=== PATIENT | female | born 1940 | race Caucasian/White ===

== ENCOUNTER 2016-10-20 12:18 | Inpatient (IN) | payer OTHER ==
--- NOTE | ~2016-10-20 | CO ---
Unit #: [id number] #: [id number] Patient: RHONDA RAMIREZ [id number] [address] [place], [place] [address] [id number] I MR#: [id number] NAME: RHONDA RAMIREZ ROOM: 561 Age: 76 Sex: F Admission Date: 10/20/2016 : 1940 Attending Physician: Steffanie Dias M.D. Primary Care Physician: Mariann Lerner A.P.R.N. Consultation Date: 10/21/2016 CONSULTATION REPORT REASON FOR CONSULTATION Ms. Ramirez is a 76-year-old white female who was admitted through the emergency department with complaints of apparent increased shortness of breath on exertion and congestive heart failure. Currently, the patient is a very unreliable historian. Prior to my seeing her this morning, she had received Serax 15 mg on a scheduled basis. She is extremely drowsy. She only awakens with shaking her; she does make eye contact, but is not able to complete her answers to questions. Also, she answers unreliable as to how much she actually remembers. According to the emergency room records, the patient had been having increasing shortness of breath. She was seen in the emergency room and felt to have congestive heart failure. She does have a history of hypertension, type 2 diabetes mellitus, and morbid obesity. On my questioning her, she absolutely denies having any history of myocardial infarction, cardiac catheterization in the past, angioplasties or stent deployments. In the emergency room she was noted to have an initial elevated troponin of 0.4 and has been admitted for further evaluation and treatment. When I tried to keep the patient awake to answer questions, she on two separate occasions denied having had any recent chest, neck, arm, jaw, or intrascapular discomfort suggestive of angina pectoris. Other history from this patient is unreliable. PAST MEDICAL HISTORY 1. Review of old records indicate she was admitted in 2013 for a surgical procedure. History and physical at that time noted that she had a diagnosis of "congestive heart failure" and medications included losartan and metoprolol as well as some diuretics. 2. Hypothyroidism. 3. Diverticulitis. 4. Hypertension. 5. Seasonal allergies. PAST SURGICAL HISTORY 1. Status post hysterectomy. 2. Tonsillectomy. 3. Adenoidectomy. 4. Bilateral knee replacements. Unit #: [id number] #: [id number] Patient: RHONDA RAMIREZ 5. Left ankle surgery. SOCIAL HISTORY No tobacco use or alcohol use. ALLERGIES Penicillin, codeine, sulfa dioxide. CURRENT MEDICATIONS 1. Losartan/HCTZ 50/12.5 mg p.o. daily. 2. Metoprolol succinate. 3. Glipizide. 4. Metformin. 5. Pravastatin. 6. Tramadol. 7. Neurontin. 8. Bentyl. 9. Amitriptyline. REVIEW OF SYSTEMS Currently unobtainable due to over sedation with Serax. PHYSICAL EXAMINATION GENERAL: The patient is a very drowsy, but arousable, 76-year-old white female who is supine in bed and in no acute distress. She is arousable by calling her name multiple times, but is unable to carry on any meaningful conversation. VITALS: Oxygen saturation 94% on nasal cannula. Blood pressure 107/52, blood sugar at bedtime 102, respiratory rate 16 per minute and unlabored. In the emergency department 10/20/2016 at 12:18 p.m., blood pressure 194/94, pulse rate 111 (sinus), temperature 97.7 and oxygen saturation on room air 86%. HEENT: Skin is warm and dry. She is not icteric. Thyroid is not palpable. There is no lymphadenopathy. Oral mucosa is moist. NECK: Supple. CHEST: Decreased breath sounds at the bases laterally. No paris rales. No wheezing. HEART: Regular rate and rhythm. S1 is normal. The pulmonic component of the second heart sound is not increased. There is a 2/6 systolic murmur at the left lower sternal border without pathologic radiation. There is no diastolic murmur or S3. Carotid upstrokes are brisk bilaterally without bruit. ABDOMEN: Morbidly obese. Soft on palpation with no guarding or rebound. Difficult to accurately assess for hepatosplenomegaly due to her morbid obesity. EXTREMITIES: Trace bilateral edema. No cyanosis. Pedal pulses palpable. NEUROLOGIC: The patient is able to move all four extremities on exam. She has normal flexor and extensor strength. She does not have any asymmetry of her face. No evidence of acute neurological event. DIAGNOSTIC STUDIES LABORATORY: Serum troponin 0.42 and 0.39 with normal total CK. Serum potassium has improved from 3.0 yesterday to 3.6 today. Serum creatinine at 0.7. CARDIOVASCULAR: EKG 10/20/2016: Sinus tachycardia at 101 per minute. Low voltage QRS all leads. Poor R wave progression V1 through V4. Could not exclude anterior infarct, age undetermined. No acute injury pattern Unit #: [id number] #: [id number] Patient: RHONDA RAMIREZ or ischemia. EKG 10/21/2016 at 7:57 a.m., normal sinus rhythm at 75 per minute. Low voltage QRS. Poor R wave progression V1 through V4. Cannot exclude anterior infarct, age undetermined. ASSESSMENT 1. Acute hypoxemic respiratory failure. As noted, this was present on admission to the emergency room and has improved post diuresis. Most likely related to acute congestive heart failure. 2. History of congestive heart failure. I am not able to find any echocardiogram and the patient is unable to give any coherent history. Echocardiogram has been done and will determine whether she has systolic/(1) or diastolic congestive heart failure. 3. Accelerated hypertension. Significant elevated blood pressure on admission to the emergency room. Now post giving medications blood pressure is much better controlled. 4. Type 2 diabetes mellitus. 5. Morbid obesity. 6. Hyperlipidemia, treated with statin therapy. PLAN In view of the elevated troponin, we will change the patient from DVD prophylaxis Lovenox to full-dose Lovenox. We will continue to check serial cardiac enzymes and tomorrow morning make the determination as to whether she needs to proceed with coronary angiography with possible revascularization. We will need to wait until she is more alert in order to discuss risks, benefits and alternatives of catheterization, possible intervention. We will change her Serax from scheduled to p.r.n. and only at night if she is not drowsy. Final recommendation as to proceeding with possible invasive evaluation will be made in the morning, when Effexor, benzodiazepines have worn off and the patient can engage in discussion. No family members were present at the time of her evaluation. Dictated by... Truman Camarillo TD: 10/21/2016 12:15 JOB #: [id number] CC: Truman Christopher M.D. [facility] Unit #: [id number] #: [id number] Patient: RHONDA RAMIREZ CONSULTATION REPORT Page 1 of 1 X Ian Carvalho MD CONSULTATION REPORT
--- NOTE | ~2016-10-20 | CT16 ---
[facility] A Service of [facility] & [facility] RADIOLOGY TEXT RESULTS PATIENT: RHONDA RAMIREZ LOCATION: [facility] 561-01 : 40 UNIT #: [id number] AGE: [address]: Abel Chan MD SEX: F ORDER DR: [id number] [facility] [address] [place], [place] [address] [id number] I MR#: [id number] Acc #: [id number] NAME: RHONDA RAMIREZ : 1940 SEX: F STUDY DATE/TIME: 10/24/2016 17:56 UNIT: [facility] ROOM: [facility] STUDY DESCRIPTION: CT Angio Chest for PE Attending Physician: Abel Chan M.D. Ordering Physician: Yue Caceres M.D. Primary Care Physician: Mariann Lerner A.P.R.N. MEDICAL IMAGING REPORT This report is preliminary unless electronic signature is present EXAM CT of the chest with IV contrast, CT angiography of the pulmonary arteries HISTORY Shortness of breath on exertion for 4 days, right upper back pain, new onset confusion. TECHNIQUE Axial imaging of the chest was performed with an IV bolus of contrast. CT angiography was performed through the pulmonary arteries and aorta with 3-D MIP multiplanar reconstructions. This CT exam was performed with one or more of the following radiation dose reduction techniques: Automatic exposure control, adjustment of mA and/or kV according to patient size, and iterative reconstruction. FINDINGS Scans with contrast show bilateral dependent pleural effusions, right greater than left. There is atelectasis in the bases, right greater than left. Extensive calcifications are present in the mitral valve annulus and there are calcifications in the coronary arteries. Granulomatous calcifications are present in the right hilum and subcarinal region. Small shotty nodes are seen in the mediastinum, none of which are pathologically enlarged. The largest node in the AP window has a short-axis diameter of about 6 mm. Scans through the upper abdomen appear unremarkable. CT angiography of the pulmonary arteries was performed. There is mild enlargement of the central pulmonary arteries. The aorta is of normal caliber with atherosclerotic calcification; there is no evidence of aneurysm or dissection. There is no pericardial fluid identified. No pulmonary artery filling defects are identified. [facility] A Service of [facility] & [facility] RADIOLOGY TEXT RESULTS PATIENT: RHONDA RAMIREZ LOCATION: [facility] 561-01 : 40 UNIT #: [id number] AGE: [address]: Abel Chan MD SEX: F ORDER DR: CONCLUSION 1. Low volumes with bibasilar atelectasis and bilateral pleural effusions, right greater than left. 2. Enlargement of the central pulmonary arteries likely reflecting some degree of pulmonary hypertension. 3. No evidence of pulmonary embolism, no evidence of aneurysm or dissection. 4. Small shotty nodes in the mediastinum, likely insignificant. 5. Atherosclerotic calcifications in the aorta and coronary arteries. 6. No evidence of pulmonary embolism. Dictated by... Tim Rodriguez M.D. THIS IS AN ELECTRONICALLY VERIFIED REPORT Tim Rodriguez M.D. at 10/26/2016 4:42 PM ELISHA/carrie TD: 10/24/2016 21:54 JOB #: [id number] MEDICAL IMAGING REPORT Page 1 of 1 COPY
--- NOTE | ~2016-10-20 | DS ---
Unit #: [id number] #: [id number] Patient: RHONDA RAMIREZ [id number] [address] [address] [id number] I MR#: [id number] NAME: RHONDA RAMIREZ ROOM: 561 Age: 76 Sex: F Admission Date: 10/20/2016 : 1940 Discharge Date: 10/26/2016 Attending Physician: Abel Chan M.D. Primary Care Physician: Mariann Lerner A.P.R.N. DISCHARGE SUMMARY PRINCIPAL DISCHARGE DIAGNOSES 1. Single vessel coronary artery disease. 2. Acute diastolic congestive heart failure. 3. Severe pulmonary hypertension. 4. Hypothyroidism. 5. Type 2 diabetes mellitus. 6. Morbid obesity. 7. Hyperlipidemia. CONSULTANTS Dr. Soto. Dr. Carvlaho. PROCEDURES PERFORMED Cardiac catheterization 10/23/2016. REASON FOR HOSPITALIZATION The patient is a 76-year-old white female with a history of hypertension, type 2 diabetes mellitus, hypothyroidism, peripheral neuropathy, morbid obesity, and presented to the emergency room with new onset of shortness of air over the past month or so, slowly worsening, especially with peripheral edema. In the emergency room she was found to have new onset congestive heart failure and admitted. On admission her room air O2 saturation was 86% and her blood pressure was quite elevated. Chest x-ray showed cardiomegaly, mild congestive heart failure, small right pleural effusion. Troponin was normal. White count was 11, hemoglobin 13, platelets 335, potassium 3.0, normal renal function, and BNP was 880. The patient was admitted. HOSPITAL COURSE Repeat cardiac enzymes were obtained. She was admitted to a monitored bed. She was placed on IV Lasix. Cardiology was consulted. She was placed on Coreg and aspirin. Cardiac enzymes became elevated to a peak of 0.42. Her blood sugars were low and her antihyperglycemics were discontinued. Her procalcitonin was 0.06. she became lethargic. ABGs were performed. She had a pH of 7.4, pCO2 66 and a PaO2 of 74. She was seen by Dr. Soto and placed on BiPAP. EKG showed no significant change. Lactic acid was normal at 1.1. Urinalysis was abnormal, but was no growth at 24 and 48 hours. She then was prepped and underwent cardiac catheterization on the , showing a single vessel coronary artery disease. Plan was for maximal medical therapy. Left ventricle was normal. There was severe calcification of the mitral anulus. Adjustments were made to her medications. She was started on Sildenafil after her echo showed severe pulmonary hypertension. She will need to have Unit #: [id number] #: [id number] Patient: RHONDA RAMIREZ outpatient sleep study for probable sleep apnea syndrome. Currently she is well saturated on 2 liters. Her echo otherwise showed normal left ventricular cavity size with moderate concentric LVH and ejection fraction of 65%-70%, grade 1 diastolic dysfunction, trace mitral regurgitation, right ventricular systolic pressure 68 mmHg. Her O2 saturation was okay on room air, but she desaturated to 88% with exertion. She had a CT angiogram on the which showed low lung volumes, atelectasis, multilateral pleural effusions, right greater than left, and large central pulmonary arteries reflecting pulmonary hypertension. No evidence of PE, aneurysm or dissection. She is being discharged home on O2 at 2 liters nasal cannula continuously. Healthy heart diet. FOLLOWUP 1. Follow up in the office in one week. 2. Dr. Londono on Saturday12/24/2016 at 15:15 hours. When she follows up in the office she will need a repeat BMP and magnesium level as well as BNP. Her last one here at the hospital was 385 on 10/25/2016. DISCHARGE MEDICATIONS 1. Sildenafil 20 mg p.o. b.i.d. 2. Atorvastatin 80 mg daily. 3. Coreg 3.125 mg p.o. b.i.d. 4. Lasix 40 mg p.o. b.i.d. 5. K-Dur 40 mEq p.o. daily. 6. Aspirin 81 mg daily. 7. Plavix 75 mg daily. 8. Neurontin 300 mg daily. 9. Discontinue losartan/HCTZ. 10. Stop Metformin. 11. Stop Oxazepam. 12. Stop glipizide. 13. Synthroid 112 mcg daily. Dictated by... Abel Chan M.D. Dayanara TD: 10/29/2016 09:20 JOB #: [id number] DISCHARGE SUMMARY Page 1 of 1 X Abel Chan MD DISCHARGE SUMMARY
--- NOTE | ~2016-10-20 | HP ---
Unit #: [id number] #: [id number] Patient: RHONDA RAMIREZ 197925 [address] [place], [place] [address] [id number] I MR#: [id number] NAME: RHONDA RAMIREZ. ROOM: 561 Age: 76 Sex: F Admission Date: 10/20/2016 : 1940 Attending Physician: Steffanie Dias M.D. Primary Care Physician: Mariann Lerner A.P.R.N. HISTORY AND PHYSICAL CHIEF COMPLAINT Shortness of breath, generalized weakness and lower abdominal pain. HISTORY OF PRESENTING ILLNESS Miss Barraza is a 76-year-old female who has multiple medical problems including hypertension, diabetes mellitus, hypothyroidism, peripheral neuropathy, came with a complaint of shortness of breath. Patient has not been feeling well for almost one month. She can walk only a few steps and starts getting short of breath. It was gradually getting worse. Her legs started to swell up and she started having lower abdominal pain yesterday. She came to ER for further evaluation and has been found to be in congestive heart failure which is new onset. According to patient she has not had any cardiac history in the past. She had cardiac workup done a few years ago at [facility]. It was normal. She does not complain of chest pain. She does not complain of chest tightness. She does not complain of nausea or vomiting. She does use two pillows to sleep but she has been using that for a long period of time. She does not complain of paroxysmal nocturnal dyspnea. She has been having polyuria and dysuria, no hematuria. No history of fever, chills or rigors. PAST MEDICAL HISTORY Past medical history is: 1. Diabetes mellitus type 2. 2. Hypertension. 3. Hypothyroidism. 4. Diabetic neuropathy. PAST SURGICAL HISTORY 1. History of hysterectomy. 2. Tonsillectomy. 3. Bilateral knee replacements. 4. Left ankle surgery. HOME MEDICATIONS Home medications are: 1. Glipizide 10 mg p.o. daily. 2. Levothyroxine 112 mcg daily. 3. Losartan and hydrochlorothiazide 50/12.5 one tablet daily. 4. Metformin 500 mg daily. 5. Gabapentin 300 mg daily. 6. Oxazepam 15 mg daily. SOCIAL HISTORY Patient lives at home. There is no history of smoking, alcohol or drug Unit #: [id number] #: [id number] Patient: RHONDA RAMIREZ. FAMILY HISTORY Patient's father and brother had esophageal malignancy. The patient's mother had coronary artery disease but there was no cardiac surgery. ALLERGIES Penicillin, codeine, sulfur dioxide. REVIEW OF SYMPTOMS As per history of presenting illness. There is no history of fever, chills or rigors. No history of skin problem. No history of ear, nose or throat problem. Her abdominal pain is much improved. No history of syncopal episode. She does complain of dizziness and did fall a few times according to her daughter but she did not have any syncopal episode. No history of seizures. PHYSICAL EXAMINATION GENERAL: Patient is being evaluated in room 561. VITAL SIGNS: Blood pressure is 150/74. Respiratory rate 18. Pulse is 92. Temperature 97.6. Oxygen saturation 95%. On admission the patient's oxygen saturation was 86% on room air and blood pressure was 194/94. The patient's BMI 47. HEENT: Head is normocephalic. Eye movements are normal. Pale conjunctivae. NECK: Neck is supple. No thyromegaly and trachea is in midline. CHEST: Has fair air entry, decreased at the bases. Bibasilar rales are present. CVS: S1, S2 positive, regular rhythm. ABDOMEN: Obese, soft, nontender, no rigidity, no rebound. EXTREMITIES: Pedal edema 1+ is present. [employer]: Patient is awake, alert, oriented x3. No focal neurological deficit. DIAGNOSTIC STUDIES LABORATORY WORKUP: Troponin 0.05, WBC 11.0, hemoglobin 13.1, hematocrit 41.8 and platelet count of 335, sodium 137, potassium 3.0, chloride 92, BUN 9, creatinine 0.7, liver enzymes are stable, BNP 880. IMAGING: Chest x-ray single view was done which shows cardiomegaly with mild central vascular congestion and bilateral interstitial opacities. Early congestive heart failure not excluded. Small right pleural effusion not excluded. ASSESSMENT Patient is being admitted to telemetry unit with diagnoses of: 1. New onset congestive heart failure. 2. Acute hypoxic respiratory failure, possibly secondary to above. 3. Hypertension, not well controlled. 4. Hypokalemia. 5. Diabetes mellitus type 2. 6. Hypothyroidism. 7. Morbid obesity. PLAN Plan is being admitted to telemetry unit under Dr. Chan. Dr. Londono has been consulted. IV Lasix 20 mg q.12 h. is being started. Cardiac enzymes and EKG q.6 h. x2. Aspirin 81 mg p.o. daily. Coreg 6.25 mg p.o. b.i.d. Unit #: [id number] #: [id number] Patient: RHONDA RAMIREZ [place]. Fasting lipid profile. Procalcitonin level will be ordered. Home medications have been reviewed. The patient's metformin is being discontinued and we are going to start Accu-Chek a.c. and h.s. with insulin sliding scale. The rest of the medications are being continued. Lovenox 40 mg subcu daily is being started. Healthy heart CC diet is being started. Plan of care has been discussed with patient and the patient's family who is in the room. Please refer to progress note for further orders. Dictated by Truman Christopher/braden TD: 10/20/2016 18:47 JOB #: [id number] HISTORY AND PHYSICAL Page 1 of 1 X Steffanie Dias MD X HISTORY AND PHYSICAL
--- NOTE | ~2016-10-20 | CR72 ---
[facility] A Service of [facility] RADIOLOGY TEXT RESULTS PATIENT: RHONDA RAMIREZ LOCATION: [facility] [address] : 40 UNIT #: [id number] AGE: [address]: Steffanie Dias MD SEX: F ORDER DR: [id number] [facility] [address] [place], [place] [address] [id number] I MR#: [id number] Acc #: [id number] NAME: RHONDA RAMIREZ. : 1940 SEX: F STUDY DATE/TIME: 10/20/2016 13:13 UNIT: CEDOF ROOM: 04025 STUDY DESCRIPTION: CR Chest Single View Portable Attending Physician: Steffanie Dias M.D. Ordering Physician: Sherman Vela M.D. Primary Care Physician: Mariann Lerner A.P.R.N. MEDICAL IMAGING REPORT This report is preliminary unless electronic signature is present EXAM Portable chest 10/20/2016. HISTORY Shortness of air and cough for 2 days. COMPARISON None. FINDINGS Frontal chest demonstrates cardiomegaly with mild central vascular congestion and bilateral interstitial opacities. Early congestive failure not excluded in the appropriate clinical setting. Small right pleural effusion not excluded. No pneumothorax. IMPRESSION Cardiomegaly with mild central vascular congestion and bilateral interstitial opacities. Early congestive failure not excluded in the appropriate clinical setting. Small right pleural effusion not excluded. Dictated by... Denny Turcios M.D. THIS IS AN ELECTRONICALLY VERIFIED REPORT Denny Turcios M.D. at 10/21/2016 8:12 AM CORBIN/alec TD: 10/20/2016 16:55 JOB #: [id number] MEDICAL IMAGING REPORT [facility] A Service [facility] RADIOLOGY TEXT RESULTS PATIENT: RHONDA RAMIREZ LOCATION: [facility] [address] : 40 UNIT #: [id number] AGE: [address]: Steffanie Dias MD SEX: F ORDER DR: Page 1 of 1 COPY
--- NOTE | ~2016-10-20 | BMI ---
[facility] Nutrition Therapy DATE: 10/22/16 Patient: RHONDA RAMIREZ Physician: JOHN Address: [address] [place] [address] Room/Bed: [address] [place] [address], Zip: [place] [address] Admit Date: 10/20/16 Date of : 40 Height: 4 10 Weight: 217 98.8 HIGH BMI NOTE: DX: 76 y/o female admitted with SOA ANTHROPOMETRICS: Ht: 58", Wt: 98.8 kg, BMI: 47 (Stage III obese) DIET: NPO (previously on healthy heart diet) INTERVENTION: Restricted diet, meds/fluids per MD RECOMMENDATIONS: Once medically feasible resume healthy heart diet to promote a gradual weight loss towards a healthy BMI range. Respectfully, Blanca Batista RD, LD [facility] cc: client file
--- NOTE | ~2016-10-20 | EKG ---
PATIENT: RHONDA RAMIREZ UNIT #: [id number] Ventricular Rate: 79 BPM Atrial Rate: 79 BPM P-R Interval: 148 ms QRS Duration: 70 ms Q-T Interval: 392 ms QTC Calculation(Bezet): 449 ms P [place]: 70 degrees Calculated R [place]: 47 degrees Calculated T [place]: -17 degrees Diagnosis Line: Normal sinus rhythm Diagnosis Line: Nonspecific T wave abnormality Diagnosis Line: Abnormal ECG Diagnosis Line: When compared with ECG of 22-OCT-2016 05:42, Diagnosis Line: No significant change was found Diagnosis Line: Confirmed by MEL LORA MD ([id number]) on 10/23/2016 Diagnosis Line: 10:41:14 PM INTERPRETING MD: GUIDO VIEYRA
--- NOTE | ~2016-10-20 | EKG ---
PATIENT: RHONDA RAMIREZ UNIT #: [id number] Ventricular Rate: 75 BPM Atrial Rate: 75 BPM P-R Interval: 142 ms QRS Duration: 76 ms Q-T Interval: 344 ms QTC Calculation(Bezet): 384 ms P [place]: 71 degrees Calculated R [place]: 21 degrees Diagnosis Line: Normal sinus rhythm Diagnosis Line: Baseline wander Poor R wave progression Diagnosis Line: questionable lead position or body habitus Diagnosis Line: Otherwise normal ECG Diagnosis Line: When compared with ECG of 20-OCT-2016 13:34, Diagnosis Line: (unconfirmed) Diagnosis Line: Nonspecific T wave abnormality, worse in Diagnosis Line: Anterolateral leads Diagnosis Line: QT has shortened Diagnosis Line: Confirmed by BILLY AGUILA MD ([id number]) on 10/21/2016 Diagnosis Line: 4:12:46 PM INTERPRETING MD: AYLA VIEYRA
--- NOTE | ~2016-10-20 | EKG ---
PATIENT: RHONDA RAMIREZ UNIT #: [id number] Ventricular Rate: 73 BPM Atrial Rate: 73 BPM P-R Interval: 158 ms QRS Duration: 86 ms Q-T Interval: 436 ms QTC Calculation(Bezet): 480 ms P [place]: 71 degrees Calculated R [place]: 11 degrees Calculated T [place]: -17 degrees Diagnosis Line: Normal sinus rhythm Diagnosis Line: Poor R wave progression questionable lead position Diagnosis Line: or body habitus Diagnosis Line: Nonspecific T wave abnormality Diagnosis Line: Abnormal ECG Diagnosis Line: Diagnosis Line: Confirmed by RAZ MATOS MD ([id number]) on Diagnosis Line: 10/22/2016 11:28:05 PM INTERPRETING MD: IESHA
--- NOTE | ~2016-10-20 | CO ---
Unit #: [id number] #: [id number] Patient: RHONDA RAMIREZ [id number] [address] [address] [id number] I MR#: [id number] NAME: RHONDA RAMIREZ. ROOM: 561 Age: 76 Sex: F Admission Date: 10/20/2016 : 1940 Attending Physician: Abel Chan M.D. Primary Care Physician: Mariann Lerner A.P.R.N. Consultation Date: 10/21/2016 CONSULTATION REPORT REASON FOR CONSULT ICU management. HISTORY OF PRESENT ILLNESS This is a 76-year-old female with a past medical history significant for diastolic congestive heart failure and pulmonary hypertension who presented to the emergency room with progressive shortness of breath and bilateral lower extremity edema for the last few days. Patient stated that she was at home, and she is pretty much independent. She uses a walker when she ambulates, and she is not on oxygen. She takes blood pressure medicine that has some diuretics in it, but she does not take any separate diuretics. She stated that she takes her medication as she is supposed to, but she has been noticing an increase in her lower extremity edema for the last few days. She denied any fever, chills, or night sweats, no cough, no chest pain, and no nausea, vomiting, or diarrhea. Patient was admitted to the floor, and she was placed on IV Lasix. However, the next day she became completely unresponsive, and currently I am evaluating the patient. She was placed on BiPAP, and a stat blood gas was obtained. She was also hypotensive and placed on dopamine. Nurses denied any extra pain medicine. PAST MEDICAL HISTORY 1. Diastolic congestive heart failure. 2. Pulmonary hypertension. 3. Morbid obesity. 4. Hypertension. 5. Seasonal allergies. PAST SURGICAL HISTORY 1. Hysterectomy. 2. Tonsillectomy. 3. Adenoidectomy. 4. Bilateral knee replacement. 5. Left ankle surgery. SOCIAL HISTORY Patient denied any history of alcohol, drug abuse, or smoking. FAMILY HISTORY Noncontributory. Unit #: [id number] #: [id number] Patient: RHONDA RAMIREZ ALLERGIES Penicillin, codeine, sulfa. HOME MEDICATIONS 1. Losartan and hydrochlorothiazide. 2. Metoprolol. 3. Glipizide. 4. Metformin. 5. Pravastatin. 6. Tramadol. 7. Neurontin. 8. Bentyl. 9. Amitriptyline. REVIEW OF SYSTEMS A 12-point review of systems was obtained and was negative except for what was mentioned in the History of Present Illness. PHYSICAL EXAMINATION GENERAL: The patient is on BiPAP currently. HEENT: Atraumatic, normocephalic. PERRLA. EOMI. NECK: Supple. No JVD. No lymphadenopathy. CHEST: Coarse rhonchi at the bottom of her lungs. HEART: S1 and S2. No murmur, gallops, or rubs. ABDOMEN: Soft, nontender. Bowel sounds are positive. No hepatosplenomegaly. EXTREMITIES: With +1 edema in the lower extremities. CENTRAL NERVOUS SYSTEM: Oriented x3. SKIN: No rashes. DIAGNOSTIC STUDIES LABORATORY: Blood gas with pH of 7.40/66/74. Creatinine 0.7 and CO2 of 35. White blood count 11, hemoglobin 13.1, and platelets 335,000. IMAGING: Chest x-ray is consistent with congestive heart failure exacerbation. ASSESSMENT 1. Acute hypoxic respiratory failure. 2. Acute on chronic diastolic congestive heart failure exacerbation. 3. Pulmonary hypertension. 4. Morbid obesity. 5. Hypothyroidism. 6. Shock. PLAN 1. Patient is critical on BiPAP and dopamine drip. 2. Will obtain lactic acid and assess for IV fluid adequacy. 3. Broad spectrum antibiotics if her lactic acid is high. 4. Lovenox full treatment dose per Cardiology. 5. Further plans to be determined once lactic acid is back. I would like to thank Dr. Carvalho for allowing me to be part of this patient's care. Critical care time spent on this patient was 32 minutes. Dictated by... Unit #: [id number] #: [id number] Patient: JAMESRHONDADEBI Soto M.D. EA/michelle TD: 10/21/2016 17:34 JOB #: [id number] CONSULTATION REPORT Page 1 of 1 X [facility]ER MD CONSULTATION REPORT
--- NOTE | ~2016-10-20 | CR72 ---
[facility] A Service of [facility] RADIOLOGY TEXT RESULTS PATIENT: RHONDA RAMIREZ LOCATION: [facility] [id number] : 40 UNIT #: [id number] AGE: [address]: Abel Chan MD SEX: F ORDER DR: [id number] [facility] [address] [place], [place] [address] [id number] I MR#: [id number] Acc #: [id number] NAME: RHONDA RAMIREZ : 1940 SEX: F STUDY DATE/TIME: 10/24/2016 8:57 UNIT: [facility] ROOM: [facility] STUDY DESCRIPTION: CR Chest Single View Portable Attending Physician: Abel Chan M.D. Ordering Physician: Abel Chan M.D. Primary Care Physician: Mariann Lerner A.P.R.N. MEDICAL IMAGING REPORT This report is preliminary unless electronic signature is present EXAM Portable chest, 10/24 INDICATION Shortness of air today. FINDINGS AP portable chest is compared with 10/20/2016. Cardiomegaly and mild vascular congestion are stable. There is increasing infiltrate or atelectasis at the right base. There is a small volume of right-side pleural fluid. Scattered granulomatous calcifications are present. There is no pneumothorax. Dictated by... Victor M Mcgovern Jr., M.D. THIS IS AN ELECTRONICALLY VERIFIED REPORT Victor M Mcgovern Jr., M.D. at 10/24/2016 4:59 PM SWATI/david TD: 10/24/2016 10:44 JOB #: [id number] MEDICAL IMAGING REPORT Page 1 of 1 COPY
--- NOTE | ~2016-10-20 | EKG ---
PATIENT: RHONDA RAMIREZ UNIT #: [id number] Ventricular Rate: 101 BPM Atrial Rate: 101 BPM P-R Interval: 148 ms QRS Duration: 76 ms Q-T Interval: 388 ms QTC Calculation(Bezet): 503 ms P [place]: 72 degrees Calculated R [place]: 17 degrees Calculated T [place]: 45 degrees Diagnosis Line: Sinus tachycardia Diagnosis Line: Baseline wander Diagnosis Line: Low voltage QRS Diagnosis Line: Poor R wave progression questionable lead position Diagnosis Line: or body habitus Diagnosis Line: Borderline ECG Diagnosis Line: No previous ECGs available Diagnosis Line: Confirmed by BILLY AGUILA MD ([id number]) on 10/21/2016 Diagnosis Line: 4:07:04 PM INTERPRETING MD: AYLA VIEYRA
[~2016-10-20 12:18] MED LIST: AMITRYPTYLINE PO; DICYCLOMINE HCL20 MG PO; GLIPIZIDE10 MG PO; LOSARTAN-HCTZ1 EACH PO; METFORMIN HCL500 M1 PO; METOPROLOL SUCC25 MG PO; NEURONTIN PO; OXAZEPAM15 MG PO; PRAVASTATIN SOD40 MG PO; TRAMADOL HCL50 M1 PO; UNITHROID112 MCG PO
[2016-10-20 13:52] LABS: POC - CKMB 1.9 ng/mL (0.0-7.9); POC - TROPONIN 0.05 ng/mL (<=0.05)
[2016-10-20 14:06] LABS: BASOPHIL% 0.3 % (0-2.5); EOSINOPHIL% 0.1 % (0.0-7.0); HEMATOCRIT 41.8 % (35.0-45.0); HEMOGLOBIN 13.1 gm/dL (12.0-16.0); LYMPHOCYTE% 8.7 % (17.0-45.0); MEAN CELL VOLUME 87.5 FL (83-96); MEAN CORPUSCULAR HEMOGLOBIN 27.3 PG (28-34); MEAN CORPUSCULAR HGB CONC 31.3 g/dL (30-36); MONOCYTE# 0.7 X10e3 (0-1.0); MONOCYTE% 6.6 % (3.0-12.0); NEUTROPHIL# 9.2 X10e3 (1.5-7.1); NEUTROPHIL% 84.3 % (40-75); PLATELET COUNT 335 X10e3 (140-420); RED BLOOD COUNT 4.78 X10e (3.90-5.30); RED CELL DISTRIBUTION WIDTH 15.3 % (11.0-15.5)
[2016-10-20 14:14] LABS: DIFF IND NO
[2016-10-20 14:26] LABS: ALBUMIN SERUM 3.7 g/dL (3.5-5.0); BILIRUBIN, DIRECT 0.3 mg/dL (0.0-0.2); BILIRUBIN,INDIRECT 0.7 mg/dL (0.0-0.9); BUN/CREATININE RATIO 12.85; CALCIUM SERUM 8.8 mg/dL (8.4-10.2); CREATININE SERUM 0.7 mg/dL (0.6-1.4); GLOM FILT RATE Estimated 84.2 mL/min (>60); PROTEIN TOTAL SERUM 7.6 g/dL (6.0-8.3)
[2016-10-20 14:27] LABS: PROTHROMBIN TIME (PATIENT) 10.9 SECONDS (9.6-11.5)
[2016-10-20] MEDS ORDERED: GLIPIZIDE10 MG PO (14:52)
[2016-10-20] MEDS ORDERED: LEVOTHYROXINE112 MCG PO (14:53)
[2016-10-20] MEDS ORDERED: METFORMIN HCL500 M3 PO (14:54)
[2016-10-20] MEDS ORDERED: GABAPENTIN300 M2 PO (14:54)
[2016-10-20] MEDS ORDERED: LOSARTAN-HCTZ1 EACH PO (14:54)
[2016-10-20] MEDS ORDERED: OXAZEPAM15 MG PO (14:54)
[2016-10-20 15:20] LABS: POC - CKMB 2.5 ng/mL (0.0-7.9); POC - TROPONIN 0.06 ng/mL (<=0.05)
[2016-10-20 23:17] LABS: URINE APPEARANCE CLEAR; URINE BILIRUBIN NEG (NEG); URINE BLOOD 2+ (NEG); URINE COLOR YELLOW; URINE GLUCOSE NEG (NEG); URINE KETONE NEG (NEG); URINE LEUKOCYTE ESTERASE 2+ (NEG); URINE NITRATE NEG (NEG); URINE PH 7.5 (5-8); URINE PROTEIN 1+ (NEG); URINE UROBILINOGEN 0.2 MG/DL (NEG)
[2016-10-20 23:20] LABS: URBCS1 AUWI 25-50 /[HPF] (0-2); URINE BACTERIA AUWI NEG (NEGATIVE); URINE SQUAMOUS EPITHELIAL CELL FEW /[HPF]; UWBCS1 AUWI 25-50 (0-5)
[2016-10-20 23:36] LABS: %MB 3.3 % (0.0-4.0); MB 5.6 ng/ml
[2016-10-21 06:56] LABS: CALCIUM SERUM 8.4 mg/dL (8.4-10.2); CREATININE SERUM 0.7 mg/dL (0.6-1.4); GLOM FILT RATE Estimated 84.2 mL/min (>60); POTASSIUM 3.6 mmol/L (3.5-5.1)
[2016-10-21 07:02] LABS: %MB 2.8 % (0.0-4.0); MB 5.5 ng/ml
[2016-10-21 12:48] LABS: %MB 2.4 % (0.0-4.0); MB 3.7 ng/ml
[2016-10-21 13:48] LABS: ARTERIAL BLOOD GAS ALLEN TEST NORMAL; ARTERIAL BLOOD GAS ART SITE LEFT RADIAL; ARTERIAL BLOOD GAS CARBOXY HB 1.4 %sat (0.0-9.0); ARTERIAL BLOOD GAS DELIVERY NASAL CANNULA; ARTERIAL BLOOD GAS HCO3 41.1 mmol/L; ARTERIAL BLOOD GAS MET HB 0.7 %sat (0.0-2.0); ARTERIAL BLOOD GAS PCO2 66.2 mmHg (35.0-45.0); ARTERIAL BLOOD GAS pH 7.401 (7.350-7.450); ARTERIAL DRAW? YES
[2016-10-21 18:44] LABS: %MB 2.9 % (0.0-4.0); MB 4.5 ng/ml
[2016-10-22 06:14] LABS: BUN/CREATININE RATIO 12.22; CREATININE SERUM 0.9 mg/dL (0.6-1.4); GLOM FILT RATE Estimated 62.2 mL/min (>60); MAGNESIUM 1.3 mg/dL (1.6-3.0)
[2016-10-22 06:17] LABS: POTASSIUM 2.9 mmol/L (3.5-5.1)
[2016-10-23 05:33] LABS: BASOPHIL% 0.6 % (0-2.5); EOSINOPHIL# 0.1 X10e3 (0-0.7); HEMOGLOBIN 10.7 gm/dL (12.0-16.0); LYMPHOCYTE# 1.4 X10e3 (1.0-3.5); LYMPHOCYTE% 18.6 % (17.0-45.0); MEAN CORPUSCULAR HEMOGLOBIN 26.9 PG (28-34); MEAN CORPUSCULAR HGB CONC 30.6 g/dL (30-36); MONOCYTE# 0.8 X10e3 (0-1.0); MONOCYTE% 10.3 % (3.0-12.0); NEUTROPHIL# 5.4 X10e3 (1.5-7.1); NEUTROPHIL% 69.5 % (40-75); PLATELET COUNT 250 X10e3 (140-420); RED BLOOD COUNT 3.98 X10e (3.90-5.30); RED CELL DISTRIBUTION WIDTH 15.3 % (11.0-15.5); WHITE BLOOD COUNT 7.7 X10e3 (4.0-10.5)
[2016-10-23 05:35] LABS: DIFF IND NO
[2016-10-23 05:43] LABS: INR 1.1; PARTIAL THROMBOPLASTIN TIME 32.1 SECONDS (23.5-31.3); PROTHROMBIN TIME (PATIENT) 11.3 SECONDS (9.6-11.5)
[2016-10-23 06:24] LABS: BUN/CREATININE RATIO 17.14; CALCIUM SERUM 7.9 mg/dL (8.4-10.2); CREATININE SERUM 0.7 mg/dL (0.6-1.4); GLOM FILT RATE Estimated 84.2 mL/min (>60); MAGNESIUM 1.5 mg/dL (1.6-3.0); POTASSIUM 3.5 mmol/L (3.5-5.1)
[2016-10-24 05:28] LABS: BASOPHIL# 0.1 X10e3 (0-0.3); BASOPHIL% 0.8 % (0-2.5); EOSINOPHIL# 0.1 X10e3 (0-0.7); EOSINOPHIL% 0.7 % (0.0-7.0); HEMATOCRIT 36.3 % (35.0-45.0); HEMOGLOBIN 11.1 gm/dL (12.0-16.0); LYMPHOCYTE# 0.9 X10e3 (1.0-3.5); LYMPHOCYTE% 10.6 % (17.0-45.0); MEAN CELL VOLUME 87.3 FL (83-96); MEAN CORPUSCULAR HEMOGLOBIN 26.8 PG (28-34); MEAN CORPUSCULAR HGB CONC 30.7 g/dL (30-36); MEAN PLATELET VOLUME 9.5 FL (6.5-11.5); MONOCYTE# 0.8 X10e3 (0-1.0); NEUTROPHIL# 6.7 X10e3 (1.5-7.1); NEUTROPHIL% 78.9 % (40-75); PLATELET COUNT 273 X10e3 (140-420); RED BLOOD COUNT 4.16 X10e (3.90-5.30); RED CELL DISTRIBUTION WIDTH 15.7 % (11.0-15.5); WHITE BLOOD COUNT 8.5 X10e3 (4.0-10.5)
[2016-10-24 05:36] LABS: DIFF IND NO
[2016-10-24 06:55] LABS: BILIRUBIN,TOTAL 0.7 mg/dL (0.2-2.0); BUN/CREATININE RATIO 13.75; CALCIUM SERUM 8.3 mg/dL (8.4-10.2); CREATININE SERUM 0.8 mg/dL (0.6-1.4); GLOM FILT RATE Estimated 71.7 mL/min (>60); MAGNESIUM 2.2 mg/dL (1.6-3.0); POTASSIUM 4.3 mmol/L (3.5-5.1); PROTEIN TOTAL SERUM 6.5 g/dL (6.0-8.3)
[2016-10-24 09:11] LABS: ARTERIAL BLD GAS O2 SATURATION 93.7 % (90.0-100.0); ARTERIAL BLOOD GAS CARBOXY HB 1.2 %sat (0.0-9.0); ARTERIAL BLOOD GAS HCO3 33.7 mmol/L; ARTERIAL BLOOD GAS MET HB 0.5 %sat (0.0-2.0); ARTERIAL BLOOD GAS pH 7.421 (7.350-7.450)
[2016-10-24 09:13] LABS: ARTERIAL BLOOD GAS ART SITE LEFT BRACHIAL; ARTERIAL BLOOD GAS DELIVERY NASAL CANNULA; ARTERIAL BLOOD GAS PCO2 51.9 mmHg (35.0-45.0); ARTERIAL BLOOD GAS PO2 72.6 mmHg (80.0-100); ARTERIAL DRAW? YES
[2016-10-25 05:23] LABS: BASOPHIL% 0.7 % (0-2.5); EOSINOPHIL# 0.1 X10e3 (0-0.7); EOSINOPHIL% 0.8 % (0.0-7.0); HEMATOCRIT 33.6 % (35.0-45.0); HEMOGLOBIN 10.4 gm/dL (12.0-16.0); LYMPHOCYTE# 1.2 X10e3 (1.0-3.5); LYMPHOCYTE% 16.3 % (17.0-45.0); MEAN CELL VOLUME 86.7 FL (83-96); MEAN CORPUSCULAR HEMOGLOBIN 26.8 PG (28-34); MEAN CORPUSCULAR HGB CONC 30.9 g/dL (30-36); MEAN PLATELET VOLUME 9.3 FL (6.5-11.5); MONOCYTE# 0.9 X10e3 (0-1.0); MONOCYTE% 11.9 % (3.0-12.0); NEUTROPHIL% 70.3 % (40-75); PLATELET COUNT 254 X10e3 (140-420); RED BLOOD COUNT 3.87 X10e (3.90-5.30); RED CELL DISTRIBUTION WIDTH 15.5 % (11.0-15.5); WHITE BLOOD COUNT 7.2 X10e3 (4.0-10.5)
[2016-10-25 05:26] LABS: DIFF IND NO
[2016-10-25 06:10] LABS: BUN/CREATININE RATIO 13.33; CALCIUM SERUM 8.5 mg/dL (8.4-10.2); CREATININE SERUM 0.9 mg/dL (0.6-1.4); GLOM FILT RATE Estimated 62.2 mL/min (>60); MAGNESIUM 1.8 mg/dL (1.6-3.0); POTASSIUM 3.7 mmol/L (3.5-5.1)
[2016-10-26 07:30] LABS: BUN/CREATININE RATIO 18.75; CALCIUM SERUM 8.4 mg/dL (8.4-10.2); CREATININE SERUM 0.8 mg/dL (0.6-1.4); GLOM FILT RATE Estimated 71.7 mL/min (>60); POTASSIUM 4.3 mmol/L (3.5-5.1)
[2016-10-26] MEDS ORDERED: OXYGEN (18:17)
[2016-10-26] MEDS ORDERED: ACETAMINOPHEN PO (18:17)
[2016-10-26] MEDS ORDERED: LIPITOR80 MG PO (18:20)
[2016-10-26] MEDS ORDERED: COREG PO (18:21)
[2016-10-26] MEDS ORDERED: LASIX PO (18:22)
[2016-10-26] MEDS ORDERED: ASPIRIN81 M2 PO (18:25)
[2016-10-26] MEDS ORDERED: CLOPIDOGREL75 MG PO (18:25)
[2016-10-26] MEDS ORDERED: KLOR-CON PO (18:25)
[2016-10-26] MEDS ORDERED: SILDENAFIL20 MG PO (18:27)
== END 2016-10-26 19:00 | disposition home or self-care (01) | DRG 280 ==
LOC: CED 12:18 → CEDOF 15:15 → C5B 15:15 → CEDOF 15:28 → CED 15:28 → C5B 15:28 → CEDOF 17:16 → C5B 10-26 19:00
PROVIDERS: Emergency Medicine; Family Medicine; Internal Medicine; Internal Medicine Cardiovascular Disease; Physician Assistant Medical
PROC: B24BZZZ Ultrasonography of Heart with Aorta (ICD-10-PCS; 2016-10-21)
PROC: 4A023N7 Measurement of Cardiac Sampling and Pressure, Left Heart, Percutaneous Approach (ICD-10-PCS; principal; 2016-10-23)
PROC: B2151ZZ Fluoroscopy of Left Heart using Low Osmolar Contrast (ICD-10-PCS; 2016-10-23)
PROC: B2111ZZ Fluoroscopy of Multiple Coronary Arteries using Low Osmolar Contrast (ICD-10-PCS; 2016-10-23)
PROC: B30TZZZ Plain Radiography of Left Pulmonary Artery (ICD-10-PCS; 2016-10-24)
PROC: B30SZZZ Plain Radiography of Right Pulmonary Artery (ICD-10-PCS; 2016-10-24)
DX: I11.0 Hypertensive heart disease with heart failure (principal); I21.4 Non-ST elevation (NSTEMI) myocardial infarction; J96.01 Acute respiratory failure with hypoxia; R57.9 Shock, unspecified; I27.2 Other secondary pulmonary hypertension; E11.42 Type 2 diabetes mellitus with diabetic polyneuropathy; Z68.42 Body mass index [BMI] 45.0-49.9, adult; E11.649 Type 2 diabetes mellitus with hypoglycemia without coma; I50.33 Acute on chronic diastolic (congestive) heart failure; I25.10 Atherosclerotic heart disease of native coronary artery without angina pectoris; E03.9 Hypothyroidism, unspecified; Z79.84 Long term (current) use of oral hypoglycemic drugs; E66.01 Morbid (severe) obesity due to excess calories; E78.5 Hyperlipidemia, unspecified; G47.33 Obstructive sleep apnea (adult) (pediatric); E87.6 Hypokalemia; E83.42 Hypomagnesemia; Z90.710 Acquired absence of both cervix and uterus; Z96.653 Presence of artificial knee joint, bilateral; Z88.0 Allergy status to penicillin; Z88.2 Allergy status to sulfonamides; Z88.5 Allergy status to narcotic agent; Z82.49 Family history of ischemic heart disease and other diseases of the circulatory system; Z80.0 Family history of malignant neoplasm of digestive organs
CPT/HCPCS: 36415; 36600; 71010; 71275; 80048; 80053; 80061; 80076; 81003; 82308; 82550; 82553; 82803; 82947; 83605; 83735; 83880; 84132; 84484; 85025; 85610; 85730; 87086; 93005; 93306; 94660; 94760; 96374; 97110; 97116; 97162; 97165; 97530; 97535; 99285; C1769; C1887; C1894; G8978-GP; G8979-GP; G8987-GO; G8988-GO; J1265; J1644; J1650; J1815; J1940; J2250; J2405; J3010; J3475; Q9967